=== PATIENT | female | born 1995 | race Caucasian/White ===

== ENCOUNTER → 2018-06-02 | Outpatient (CLI) | payer MEDICAID ==
--- NOTE | 2018-06-02 10:36 | Diagnostic Imaging Report ---
INDICATION: survey. TECHNIQUE: Multiple real-time grayscale images were obtained over the gravid uterus. COMPARISON: None. FINDINGS: There is a single live fetus in a variable presentation. heart rate is recorded at 147 beats per minute. The placenta is posterior. The amniotic fluid volume is normal. Cervical length is 4.5 cm. survey demonstrates kidneys, bladder and stomach to be unremarkable. The brain is unremarkable. There is a four-chamber heart. There is a three-vessel cord with normal insertion. The spine is unremarkable. Biometrical measurements are as follows: Biparietal 3.81 cm, age 17 weeks 5 days. Head circumference 14.02 cm, age 17 weeks 3 days. Abdominal circumference 12.62 cm, age 18 weeks 2 days. Femur length 2.83 cm, age 18 weeks 5 days. Sonographic estimate age: 18 weeks 1 days. Sonographic estimated date of delivery: 10/26/2018. Estimated Weight: 234 gm (+/- 34 gm). LMP percentile: 9%. heart rate: 147 beats per minute. number: 1 of 1. IMPRESSION: Single live IUP 18 weeks 1 day gestational age. Estimated date of confinement sonographically is 10/26/2018. Dictated by: Dictated on workstation # [id number]
== END ==
LOC: RAD 09:23
PROVIDERS: ATTEND Obstetrics & Gynecology
DX: Z36.89 Encounter for other specified antenatal screening (principal); Z3A.18 18 weeks gestation of pregnancy
CPT/HCPCS: 76805

== ENCOUNTER 2018-09-09 19:53 | Outpatient (CLI) | payer MEDICAID ==
[~2018-09-09] VITALS: Ht 162.6 cm; Wt 103.4 kg
--- NOTE | 2018-09-09 20:00 | NUR ---
ADELAIDA DICKINSON presented to unit via from ED, accompanied by friend, with c/o FALL,BACK PAIN. ADELAIDA DICKINSON weighed, gowned, voided, and to bed. EFHM and TOCO applied, VS taken. ADELAIDA DICKINSON oriented to bed controls, call light, TV, heat, and A/C controls.
--- NOTE | 2018-09-09 20:05 | NUR ---
Pt states that tonight she was walking out of a restaurant and fell on some ice. denies hitting abdomen. now c/o right groin pain, lower back pain, umbilicus pain. states with her last void prior to arrival pt did notice some spotting.
[2018-09-09 20:15] VITALS: BP 113/61
[2018-09-09] MEDS ORDERED: PNV1TABL81 PO (20:40)
--- NOTE | 2018-09-09 20:40 | NUR ---
called with pt's arrival and assessment. orders received.
[2018-09-09] MEDS ORDERED: ACETAMINOPHEN 500 MG TAB (TYLENOL) PO ONE (20:45)
--- NOTE | 2018-09-09 21:15 | NUR ---
u/a collected. pt states no spotting noted
[2018-09-09 21:24] LABS: BILIRUBIN,URINE NEGATIVE (NEGATIVE); CLARITY,URINE CLEAR; COLOR,URINE YELLOW; GLUCOSE, URINE (UA) NEGATIVE (NEGATIVE); KETONES,URINE NEGATIVE (NEGATIVE); LEUKOCYTE ESTERASE ,URINE 1+ (NEGATIVE); NITRITE,URINE NEGATIVE (NEGATIVE); PH,URINE 6.5 (5-9); PROTEIN,URINE NEGATIVE (NEGATIVE); UROBILINOGEN,URINE NORMAL (NORMAL)
[2018-09-09 21:35] LABS: BACTERIA,URINE FEW /HPF; RBC,URINE 0-2 /HPF
--- NOTE | 2018-09-09 22:30 | NUR ---
on unit. update given. discharge instructions verbalized. Addendum: 09/09/18 at 2242 by MAYDA HERBERT RN on unit. update given. discharge order received.
--- NOTE | 2018-09-09 22:40 | NUR ---
Discharge instructions verbalized with pt. pt verbalized understanding. Pt dc'd home. will follow up on Wednesday
[2018-09-10] MEDS ORDERED: FLU QUADRIvalent (5+ YOA) 2018-2019 (AFLURIA) 0.5 ML IM ONE (07:30)
--- NOTE | 2018-09-12 17:07 | Physician Query-Final Dx ---
ROSSI MITCHELL 09/12/18 1707: Clinic Account Progress/Dx Physician Query: Please give diagnosis Date of Service Sep 09, 2018 at 19:53 FRANCO BERRIOS DO 09/30/18 1249: Clinic Account Progress/Dx DIAGNOSIS: Diagnosis 33 weeks gestation fall in ROSSI MITCHELL Sep 12, 2018 17:07 FRANCO BERRIOS DO Sep 30, 2018 12:49
== END 2018-09-09 22:40 | disposition home or self-care (01) ==
LOC: WSo 19:53 → LDRP 19:53 → WSo 22:40
PROVIDERS: ATTEND Obstetrics & Gynecology
DX: Z04.3 Encounter for examination and observation following other accident (principal); Z3A.33 33 weeks gestation of pregnancy
CPT/HCPCS: 81000; 99213

== ENCOUNTER → 2018-09-16 | Outpatient (CLI) | payer MEDICAID ==
[~2018-09-16] MED LIST: PNV1TABL81 PO
--- NOTE | 2018-09-16 13:07 | Diagnostic Imaging Report ---
INDICATION: Macrosomia. TECHNIQUE: Multiple real-time grayscale images were obtained over the gravid uterus. COMPARISON: 06/02/2018. FINDINGS: There is a single live fetus in a cephalic presentation. heart rate was recorded at 130 beats per minute. Placenta is posterior. Amniotic fluid volume is normal. Cervical length is 4.5 cm. Biometrical measurements are as follows: Biparietal 8.02 cm, age 32 weeks 2 days. Head circumference 29.44 cm, age 32 weeks 4 days. Abdominal circumference 26.69 cm, age 30 weeks 6 days. Femur length 6.26 cm, age 32 weeks 3 days. Sonographic estimate age: 32 weeks 1 days. Sonographic estimated date of delivery: 11/10/18. Estimated Weight: 1797 gm (+/- 262 gm). LMP percentile: 2%. heart rate: 130 beats per minute. number: 1 of 1. IMPRESSION: Single live IUP measuring approximately 32 weeks gestational age, showing normal interval growth when compared with the prior exam. No complicating features are seen. Dictated by: Dictated on workstation # [id number]
== END ==
LOC: RAD 09:44
PROVIDERS: ATTEND Obstetrics & Gynecology
DX: O36.63X0 Maternal care for excessive fetal growth, third trimester, not applicable or unspecified (principal); Z3A.32 32 weeks gestation of pregnancy
CPT/HCPCS: 76816

== ENCOUNTER 2018-10-23 20:05 | Inpatient (IN) | payer MEDICAID ==
[~2018-10-23] VITALS: Ht 162.6 cm; Wt 108.4 kg
--- OUTSIDE RECORDS SUMMARY | 2018-10-23 20:09 | XMS REPORT | Continuity of Care Document ---
Demographics Preferred Language Unknown Marital Status Unknown Latter-Day Affiliation Unknown Race Unknown Ethnic Group Unknown Author Author [facility] Address Unknown Phone Unavailable Allergies There is no data. Medications There is no data. Problems There is no data. Procedures There is no data. Results There is no data. Encounters ACCT No. Visit Date/Time Discharge Status Pt. Type Provider Facility Loc./Unit Complaint [id number] 01/05/2013 11:30:45 Document Registration
--- OUTSIDE RECORDS SUMMARY | 2018-10-23 20:09 | XMS REPORT ---
Author Author ADAN CALDERON [facility] Address [address] [place] [address] Care Team Providers Care Stem Crusher Name Role Phone ADAN CALDERON Unavailable PROBLEMS Type Condition ICD9-CM Code [id number] Code Onset Dates Condition Status SNOMED Code Problem Obesity (BMI 30-39.9) 278.00 Active 360998843 Problem Chronic headaches 784.0 Active 655460595 ALLERGIES No Known Allergies ENCOUNTERS Encounter Location Date Diagnosis [place] [id number] [place] [phone] Mar, [place] [address] [address] Mar, Routine gynecological examination Z01.419 and Routine screening for STI (sexually transmitted infection) Z11.3 [place] [id number] [place] [address] Dec, [place] [id number] [address] Dec, [place] [id number] [place] [address] Dec, Routine gynecological examination Z01.419 and Encounter for counseling regarding contraception Z30.9 [place] [id number] [place] [phone] Jan, Chronic headaches 784.0 and Obesity (BMI 30-39.9) 278.00 [place] [id number] [place] [address] Jan, Oral contraceptive pill surveillance V25.41 [place] [id number] [place] [phone] Dec, Tension headache, chronic 339.12 [facility] [address] [facility] [id number] [address] Oct, Nexplanon removal V25.43 ; General counseling on prescription of oral contraceptives V25.01 and Screen for STD (sexually transmitted disease) V74.5 [facility] [address] [facility] [id number] [address] Apr, [facility] [address] [facility] [id number] [address] Dec, IMMUNIZATIONS No Known Immunizations SOCIAL HISTORY Never Assessed REASON FOR VISIT Annual physical (female)/STD check---TR Valle PLAN OF CARE Activity Details Follow Up 1 Year, sooner prn Reason: VITAL SIGNS Height 64 in 2017-03-09 Weight 225.9 lbs 2017-03-09 Temperature 97.8 degrees Fahrenheit 2017-03-09 Heart Rate 88 bpm 2017-03-09 Respiratory Rate 18 2017-03-09 BMI 38.77 kg/m2 2017-03-09 Blood pressure systolic 124 mmHg 2017-03-09 Blood pressure diastolic 80 mmHg 2017-03-09 MEDICATIONS Medication Instructions Dosage Frequency Start Date End Date Duration Status Amoxicillin 875 MG Orally every 12 hrs 1 tablet 12h Mar, Mar, 07 days Active RESULTS Name Result Date Reference Range TRICHOMONAS (IN HOUSE) 2017-03-09 TRICHOMONAS Negative Control + Lot # [id number] Exp date 19/04/30 BACTERIAL VAGINOSIS (IN HOUSE) 2017-03-09 RESULTS Negative Control + Lot # [id number] Exp date HSV 1/2 ANTIBODY IgG 2017-03-09 HSV 1 IgG, Type Spec 13.50 0.00-0.90 HSV 2 IgG, Type Spec <0.91 0.00-0.90 HSV 1/2 ANTIBODY IgM 2017-03-09 HSV 1 IgM Antibodies <1:10 <1:10 HSV 2 IgM Antibodies <1:10 <1:10 CULTURE, GENITAL 2017-03-09 Genital Culture, Routine Final report Result 1 Result 2 PDF Report 2017-03-09 PDF Report1 LCLS PAP TEST, HPV IF ASCUS 2017-03-09 DIAGNOSIS: Specimen adequacy: Clinician provided ICD10: Performed by: Electronically signed by: . . Note: . PROCEDURES Procedure Date Ordered Result Body Site No Charge Mar 09, 2017 HERPES SIMPLEX TYPE 2 Mar 09, 2017 CULTURE, BACTERIA, OTHER Mar 09, 2017 VENIPUNCT, ROUTINE* Mar 09, 2017 SPECIMEN HANDLING Mar 09, 2017 HERPES SIMPLEX TEST Mar 09, 2017 Bacterial Vaginosis In House Mar 09, 2017 TRICHOMONAS ASSAY W/OPTIC Mar 09, 2017 INSTRUCTIONS MEDICATIONS ADMINISTERED No Known Medications MEDICAL (GENERAL) HISTORY Type Description Date Medical History Headaches
[2018-10-23 20:25] VITALS: BP 118/80
[2018-10-23] MEDS ORDERED: D5 LR IV SOLUTION 1,000 ML IV ONE (20:30)
[2018-10-23] MEDS ORDERED: VANCOMYCIN INJECTION 2,000 MG in NS IV 500 ML 500 ML IV ONE (21:15)
[2018-10-23] MEDS ORDERED: LACTATED RINGERS 1,000 ML IV SCH (21:17)
[2018-10-23] MEDS ORDERED: VANCOMYCIN 1000 MG/VIAL ONE (21:23)
[2018-10-23] MEDS ORDERED: WATER (STERILE) FOR INJECTION 0 ML ONE (21:28)
[2018-10-23] MEDS ORDERED: TERBUTALINE INJ 1 MG/ML (BRETHINE) AMP SC PRN (21:30)
[2018-10-23] MEDS ORDERED: MISOPROSTOL 100 MCG (CYTOTEC) TAB PO ONE (21:30)
[2018-10-23] MEDS ORDERED: NS IV 500 ML 500 ML ONE (21:38)
[2018-10-23] MEDS ORDERED: ZOLPIDEM 5 MG (AMBIEN) TAB PO ONE (21:45)
[2018-10-23 21:50] VITALS: BP 112/66
[2018-10-23 21:57] LABS: BASOPHILS % (AUTO) 0 % (0-10); EOSINOPHILS # (AUTO) 0.1 10^3/uL (0.0-0.3); EOSINOPHILS % (AUTO) 1 % (0-10); HEMATOCRIT 32 % (35-52); HEMOGLOBIN 10.6 G/DL (11.5-16.0); LYMPHOCYTES # (AUTO) 2.8 X 10^3 (1.0-4.0); LYMPHOCYTES % (AUTO) 18 % (12-44); MEAN CORPUSCULAR HEMOGLOBIN 29 PG (25-34); MEAN CORPUSCULAR HGB CONC 33 G/DL (32-36); MEAN CORPUSCULAR VOLUME 87 FL (80-99); MONOCYTES # (AUTO) 1.3 X 10^3 (0.0-1.0); MONOCYTES % (AUTO) 9 % (0-12); NEUTROPHILS % (AUTO) 72 % (42-75); PLATELET COUNT 296 10^3/uL (130-400); RED CELL DISTRIBUTION WIDTH 13.5 % (10.0-14.5); WHITE BLOOD COUNT 15.1 10^3/uL (4.3-11.0)
[2018-10-23 22:02] LABS: BILIRUBIN,URINE NEGATIVE (NEGATIVE); CLARITY,URINE CLEAR; COLOR,URINE YELLOW; GLUCOSE, URINE (UA) NEGATIVE (NEGATIVE); KETONES,URINE 1+ (NEGATIVE); LEUKOCYTE ESTERASE ,URINE 1+ (NEGATIVE); NITRITE,URINE NEGATIVE (NEGATIVE); PH,URINE 5 (5-9); PROTEIN,URINE NEGATIVE (NEGATIVE); UROBILINOGEN,URINE NORMAL (NORMAL)
[2018-10-23 22:17] LABS: BACTERIA,URINE TRACE /HPF; WBC,URINE RARE /HPF
[2018-10-23 22:30] VITALS: BP 100/59
[2018-10-23] MEDS ORDERED: CLINDAMYCIN 1% (22:57)
[2018-10-23 23:00] VITALS: BP 112/57
[2018-10-23 23:30] VITALS: BP 105/58
[2018-10-23] MEDS ORDERED: diphenhydrAMINE 50 MG/ML INJ (BENADRYL) ONE (23:53)
[2018-10-24] VITALS (61 sets, daily range): BP systolic 72–144; BP diastolic 42–97
[2018-10-24] MEDS ORDERED: diphenhydrAMINE 50 MG/ML INJ (BENADRYL) IM ONE
[2018-10-24] MEDS ORDERED: FAMOTIDINE 20 MG (PEPCID) TABLET PO ONE
[2018-10-24] MEDS ORDERED: diphenhydrAMINE 50 MG/ML INJ (BENADRYL) IVP ONE (00:15)
[2018-10-24] MEDS: MISOPROSTOL 100 MCG (CYTOTEC) TAB PO SCH ×4 (02:23→15:47)
[2018-10-24] MEDS ORDERED: CLINDAMYCIN 600 MG/50 ML IVPB 50 ML IV SCH (06:00)
[2018-10-24] MEDS ORDERED: CLINDAMYCIN 900 MG/50 ML IVPB 50 ML IV ONE (06:22)
[2018-10-24] MEDS: D5 LR IV SOLUTION 1,000 ML IV SCH ×3 (06:33→22:11)
--- NOTE | 2018-10-24 07:00 | NUR ---
REPORT FROM JOLENE FOSTER.
--- NOTE | 2018-10-24 07:43 | History & Physical-OB ---
OB - Chief Complaint & HPI Date/Time Date of Admission: Date of Admission: Oct 23, 2018 at 20:05 Date seen by a Provider: Oct 24, 2018 Time Seen by a Provider: 07:38 Chief Complaint/History OB-Reason for Admission/Chief: Induction of Labor Hx : 1 Hx Para: 0 Hx Last Menstrual Period: 01/19/18 Expected Date of Delivery: Oct 26, 2018 Gestational Age in Weeks: 39 Gestational Age in Days: 4 Indication for induction: other Admission Nurse Assessment Rev: Yes History of Labs Laboratory Tests Test 10/23/18 21:00 10/23/18 21:48 Range/Units Urine Color YELLOW Urine Clarity CLEAR Urine pH 5 5-9 Urine Specific [place] 1.025 H 1.016-1.022 Urine Protein NEGATIVE NEGATIVE Urine Glucose (UA) NEGATIVE NEGATIVE Urine Ketones 1+ H NEGATIVE Urine Nitrite NEGATIVE NEGATIVE Urine Bilirubin NEGATIVE NEGATIVE Urine Urobilinogen NORMAL NORMAL MG/DL Urine Leukocyte Esterase 1+ H NEGATIVE Urine RBC (Auto) NEGATIVE NEGATIVE Urine RBC NONE /HPF Urine WBC RARE /HPF Urine Squamous Epithelial Cells 5-10 /HPF Urine Crystals NONE /LPF Urine Bacteria TRACE /HPF Urine Casts NONE /LPF Urine Mucus NEGATIVE /LPF Urine Culture Indicated NO White Blood Count 15.1 H 4.3-11.0 10^3/uL Red Blood Count 3.66 L 4.35-5.85 10^6/uL Hemoglobin 10.6 L 11.5-16.0 G/DL Hematocrit 32 L 35-52 % Mean Corpuscular Volume 87 80-99 FL Mean Corpuscular Hemoglobin 29 25-34 PG Mean Corpuscular Hemoglobin Concent 33 32-36 G/DL Red Cell Distribution Width 13.5 10.0-14.5 % Platelet Count 296 130-400 10^3/uL Mean Platelet Volume 10.0 7.4-10.4 FL Neutrophils (%) (Auto) 72 42-75 % Lymphocytes (%) (Auto) 18 12-44 % Monocytes (%) (Auto) 9 0-12 % Eosinophils (%) (Auto) 1 0-10 % Basophils (%) (Auto) 0 0-10 % Neutrophils # (Auto) 11.0 H 1.8-7.8 X 10^3 Lymphocytes # (Auto) 2.8 1.0-4.0 X 10^3 Monocytes # (Auto) 1.3 H 0.0-1.0 X 10^3 Eosinophils # (Auto) 0.1 0.0-0.3 10^3/uL Basophils # (Auto) 0.0 0.0-0.1 10^3/uL Allergies and Home Medications Allergies Coded Allergies: vancomycin (Verified Allergy, Mild, HIVES, 10/24/18) Home Medications Acetaminophen 500 Mg Tablet, 1,000 MG PO Q8H Prescribed by: FRANCO BERRIOS on 10/26/182036 Ibuprofen 600 Mg Tablet, 600 MG PO Q6H Prescribed by: FRANCO BERRIOS on 10/26/182036 Patient Home Medication List Home Medication List Reviewed: Yes OB - History Hx of Present Care: Yes Ultrasounds: Abnormal US findings Obstetrical Complications: Growth Restriction Medical Complications: None Obstetrical History Hx : 1 Hx Para: 0 Hx # Term Pregnancies: 0 Hx # Pregnancies: 0 Number of Living Children: 0 Hx Termination: No Hx Multiple Gestation: No Hx Ectopic : No Hx Stillbirth: No Hx Complication: No Hx Induced Hypertens: No Hx Maternal Gestational Diabet: No Hx Hemorrhage: No Patient Past Medical History No past medical history Social History/Family History Alcohol Use: Denies Use Recreational Drug Use: No Significant Family Hx Mother: Diabetes mellitus Maternal grandmother: Diabetes mellitus, Hyperlipidemia, Emphysema, Lung cancer Paternal grandmother: Alzheimer disease, diabetes mellitus, hyperlipidemia, hypertension Maternal grandfather: diabetes mellitus, heart disease Paternal grandfather: diabetes mellitus, heart disease Immunizations Rubella: immune RPR/VDRL: Negative GBS Status: Positive HBsAG: Negative OB - Admission Exam Physical Exam Vitals: Vital Signs 10/24/18 10/24/18 06:00 07:00 Temp 97.1 Pulse 75 Resp 18 B/P (MAP) 110/58 (75) O2 Delivery Room Air HEENT: Eyes non-injected Heart: Rhythm Normal Lungs: Clear, Equal Abdomen: Non tender Extremities: Normal Labs Laboratory Tests Test 10/23/18 21:00 10/23/18 21:48 Range/Units Urine Color YELLOW Urine Clarity CLEAR Urine pH 5 5-9 Urine Specific [place] 1.025 H 1.016-1.022 Urine Protein NEGATIVE NEGATIVE Urine Glucose (UA) NEGATIVE NEGATIVE Urine Ketones 1+ H NEGATIVE Urine Nitrite NEGATIVE NEGATIVE Urine Bilirubin NEGATIVE NEGATIVE Urine Urobilinogen NORMAL NORMAL MG/DL Urine Leukocyte Esterase 1+ H NEGATIVE Urine RBC (Auto) NEGATIVE NEGATIVE Urine RBC NONE /HPF Urine WBC RARE /HPF Urine Squamous Epithelial Cells 5-10 /HPF Urine Crystals NONE /LPF Urine Bacteria TRACE /HPF Urine Casts NONE /LPF Urine Mucus NEGATIVE /LPF Urine Culture Indicated NO White Blood Count 15.1 H 4.3-11.0 10^3/uL Red Blood Count 3.66 L 4.35-5.85 10^6/uL Hemoglobin 10.6 L 11.5-16.0 G/DL Hematocrit 32 L 35-52 % Mean Corpuscular Volume 87 80-99 FL Mean Corpuscular Hemoglobin 29 25-34 PG Mean Corpuscular Hemoglobin Concent 33 32-36 G/DL Red Cell Distribution Width 13.5 10.0-14.5 % Platelet Count 296 130-400 10^3/uL Mean Platelet Volume 10.0 7.4-10.4 FL Neutrophils (%) (Auto) 72 42-75 % Lymphocytes (%) (Auto) 18 12-44 % Monocytes (%) (Auto) 9 0-12 % Eosinophils (%) (Auto) 1 0-10 % Basophils (%) (Auto) 0 0-10 % Neutrophils # (Auto) 11.0 H 1.8-7.8 X 10^3 Lymphocytes # (Auto) 2.8 1.0-4.0 X 10^3 Monocytes # (Auto) 1.3 H 0.0-1.0 X 10^3 Eosinophils # (Auto) 0.1 0.0-0.3 10^3/uL Basophils # (Auto) 0.0 0.0-0.1 10^3/uL OB - Assessment/Plan/Diagnosis Assessment Assessment: induction of labor Admission Dx at 39 weeks and 4 days Induction due to post dates Gestational HTN Admission Status: Inpatient Order (span 2 midnights) Reason for Inpatient Admission: at 39 weeks and 4 days Induction due to post dates Gestational HTN Plan Plan: Induction Discharge Diagnosis Diagnosis: at 39 weeks and 4 days Induction due to post dates Gestational HTN JALEESA TELLEZ STUDENT Oct 24, 2018 07:43
[2018-10-24] MEDS ORDERED: FLU QUADRIvalent (5+ YOA) 2018-2019 (AFLURIA) 0.5 ML IM ONE (07:45)
[2018-10-24] MEDS ORDERED: VANCOMYCIN INJECTION 1,000 MG in NS (IVPB) 250 ML IV SCH (09:00)
[2018-10-24] MEDS ORDERED: BUTORPHANOL INJ 2 MG/ML (STADOL) VIAL IV PRN (11:00)
--- NOTE | 2018-10-24 11:09 | Physician Progress Note ---
Progress Note Assessment/Plan Date Seen by Provider: Oct 24, 2018 Time Seen by Provider: 11:00 Events since last exam 3 doses oral misoprostol. 1 dose IV vancomycin due to GBS + and suspected staph infection (left lower abdomen). Developed hypersensitivity reaction with itching and hives about 1 hour after infusion. Was given Benadryl and H2 marcelo and rash has gone away. Now receiving clindamycin. Next dose due at 12 :30. She is having irregular contractions SVE 2/50/-2 anterior. AROM with clear fluid. FSE placed Will give addl dose of misoprostol and then augment as needed with oxytocin. Iv pain medication as needed. Gelacio Krueger/Truong. Assessment/Plan 1. Induction of labor at Term 2. Recent abdominal skin abscess, improved with topical and oral antibiotics; no current drainage; covered 3. Allergic rxn to Vancomycin Plan as above Vitals Last set of Vitals Signs Vital Signs Date Time Temp Pulse Resp B/P (MAP) Pulse Ox O2 Delivery O2 Flow Rate FiO2 10/24/18 07:00 75 18 110/58 (75) Room Air 10/24/18 06:00 97.1 I&O I&O Intake and Output 10/24/18 00:00 Daily Weight Change No Labs Laboratory Tests 10/23/18 21:00: Urine Color YELLOW, Urine Clarity CLEAR, Urine pH 5, Urine Specific [place] 1.025H, Urine Protein NEGATIVE, Urine Glucose (UA) NEGATIVE, Urine Ketones 1+H, Urine Nitrite NEGATIVE, Urine Bilirubin NEGATIVE, Urine Urobilinogen NORMAL, Urine Leukocyte Esterase 1+H, Urine RBC (Auto) NEGATIVE, Urine RBC NONE, Urine WBC RARE, Urine Squamous Epithelial Cells 5-10, Urine Crystals NONE, Urine Bacteria TRACE, Urine Casts NONE, Urine Mucus NEGATIVE, Urine Culture Indicated NO 10/23/18 21:48: White Blood Count 15.1H, Red Blood Count 3.66L, Hemoglobin 10.6L, Hematocrit 32L , Mean Corpuscular Volume 87, Mean Corpuscular Hemoglobin 29, Mean Corpuscular Hemoglobin Concent 33, Red Cell Distribution Width 13.5, Platelet Count 296, Mean Platelet Volume 10.0, Neutrophils (%) (Auto) 72, Lymphocytes (%) (Auto) 18 , Monocytes (%) (Auto) 9, Eosinophils (%) (Auto) 1, Basophils (%) (Auto) 0, Neutrophils # (Auto) 11.0H, Lymphocytes # (Auto) 2.8, Monocytes # (Auto) 1.3H, Eosinophils # (Auto) 0.1, Basophils # (Auto) 0.0 Clinical Quality Measures DVT/VTE Risk/Contraindication: Risk Factor Score Per Nursin RFS Level Per Nursing on Admit: 1=Low/No VTE PPX FRANCO BERRIOS DO Oct 24, 2018 11:09
[2018-10-24] MEDS ORDERED: PROMETHAZINE INJ 25 MG/ML (PHENERGAN) AMP IVP PRN (11:15)
[2018-10-24] MEDS ORDERED: CLINDAMYCIN 900 MG/50 ML IVPB 50 ML IV SCH (12:00)
[2018-10-24] MEDS: CLINDAMYCIN 900 MG/50 ML IVPB 50 ML IV SCH ×2 (12:47→19:02)
[2018-10-24] MEDS ORDERED: SUFENTA 0.6MCG/ML BUPIVA 0.125 100 ML ONE (18:51)
[2018-10-24] MEDS ORDERED: OXYTOCIN/NORMAL SALINE 500 ML IV ONE (19:44)
[2018-10-24] MEDS ORDERED: LIDOCAINE PF 2% 5 ML (XYLOCAINE) VIAL ONE ×2 (20:27→21:49)
[2018-10-24] MEDS ORDERED: BUPIVACAINE 0.25% 30 ML (SENSORCAINE) VIAL ONE (20:27)
[2018-10-24] MEDS ORDERED: fentaNYL INJECTION 100 MCG/2 ML AMP ONE (20:28)
[2018-10-24] MEDS ORDERED: OXYTOCIN/NORMAL SALINE 500 ML IV SCH (20:35)
[2018-10-24] MEDS ORDERED: LACTATED RINGERS 1,000 ML IV SCH (22:10)
[2018-10-24] MEDS ORDERED: ONDANSETRON 4 MG/2 ML (SDV) Z0FRAN IV PRN (22:15)
[2018-10-24] MEDS ORDERED: NALOXONE 0.4 MG/ML 1 ML (NARCAN) VIAL IV PRN (22:15)
[2018-10-24] MEDS ORDERED: diphenhydrAMINE 50 MG/ML INJ (BENADRYL) IV PRN (22:15)
[2018-10-24] MEDS ORDERED: EPIDURAL (SUFENTA 0.6MCG/ML BUPIVA 0.125%) 100 ML BAG EPI PRN (22:15)
[2018-10-25] VITALS (25 sets, daily range): BP systolic 95–139; BP diastolic 52–91
[2018-10-25] MEDS: CLINDAMYCIN 900 MG/50 ML IVPB 50 ML IV SCH (00:25)
[2018-10-25] MEDS ORDERED: MINERAL OIL CONCENTRATE 99.9% 15 ML UDC ONE (01:54)
[2018-10-25] MEDS ORDERED: OXYTOCIN/NORMAL SALINE 500 ML IV SCH (03:02)
[2018-10-25] MEDS ORDERED: MEASLES,MUMPS,RUBELLA 1 EA INJ SQ ONE (03:15)
[2018-10-25] MEDS ORDERED: TETANUS,DIPTH,PERTUSS P/F (BOOSTRIX) 0.5 ML VIAL IM ONE (03:15)
[2018-10-25] MEDS ORDERED: DIBUCAINE (NUPERCAINAL) 1% OINT 30 GM TOP PRN (03:15)
[2018-10-25] MEDS ORDERED: BENZOCAINE/MENTHOL (DERMOPLAST) 56 ML CAN TP PRN (03:15)
[2018-10-25] MEDS ORDERED: WITCH HAZEL(TUCKS) 40 EA JAR TOP PRN (03:15)
--- NOTE | 2018-10-25 04:35 | OB Labor & Delivery Record ---
Vag Delivery Note Vag Delivery Note Date of Delivery: 10/25/18 Preoperative Diagnosis: Ivette Montague is a (23 /Para 1 / 0, Gestational Age 39 4/7 weeks for induction of labor due to post dates, staph infection of skin, GBS +. Postoperative Diagnosis: Same Surgeon: FRANCO BERRIOS Business Relations Manager: Susy Webster MS IV Anesthesia: epidural Delivery Type: vaginal, vacuum assist due to decelerations Findings: Viable , apgars 7/9, weight pending Lacerations: 1st degree. Intact placenta with 3 vessel cord. nuchal cord delivered through, no body cord or shoulder dystocia Estimated Blood Loss: 150 ml Complications: None Condition: Stable Description of Procedure: The patient is a 23 year old female who presented at 39 4/7 weeks for induction of labor. . She was admitted and informed consent was obtained. She received Cytotec x 2 doses. She has history of a furuncle on the abdomen that developed last week. Blood pressures have been elevated so we have been monitoring, but now severe enough to induce early so opted to treat the furuncle with oral antibiotics. She has not completed the course. There was no drainage so no culture was done, but this is suspected to be staph. Therefore she was started on vancomycin. However, after the infusion she was noted to complain of some redness to the face and chest and complained of itching. She did not have a rash and did not have any evidence of respiratory distress. This may have been "red man" reaction. The antibiotic was changed to clindamycin. She had augmentation with pitocin. She progressed to complete dilatation and began to push. She was then set up for delivery. Due to deep decelerations that did not recover and poor maternal effort, the Kiwi vac was placed on the head at + 2 station. With two pushes and one pop off the infant's head was delivered atraumatically in the OA position. The shoulders and remainder of the infant's body were then delivered without difficulty. Upon delivery, the head was held below the level of the perineum and the mouth and nares were bulb suctioned. The cord was doubly clamped and cut and the infant was handed off to the pediatric staff. An intact placenta with 3-vessel cord delivered via Matthew and there was found to be minimal bleeding.~ Vigorous fundal massage was performed and the fundus was found to be firm. IV oxytocin was given. Examination of the vagina and perineum revealed a 1st degree laceration repaired in the usual fashion with 3-0 vicryl suture. There was also a labial laceration that was not repaired. Following the repair, sponge, instrument and needle counts were correct. Mom and baby were both in stable condition in the labor suite. Vitals - Labs Vital Signs - I&O Vital Signs Date Time Temp Pulse Resp B/P (MAP) Pulse Ox O2 Delivery O2 Flow Rate FiO2 10/24/18 21:51 89 18 103/64 (77) 100 Room Air 10/24/18 21:46 89 18 131/78 (95) 100 Room Air 10/24/18 21:42 102 18 112/68 (83) 100 Room Air 10/24/18 21:32 85 18 104/64 (77) 98 Room Air 10/24/18 21:26 95 18 115/77 (90) 98 Room Air 10/24/18 21:21 83 18 120/85 (97) 96 Room Air 10/24/18 21:18 85 18 131/80 (97) 95 Room Air 10/24/18 21:16 96 18 142/95 (111) 98 Room Air 10/24/18 21:11 97 18 137/95 (109) 98 Room Air 10/24/18 21:06 99 18 126/90 (102) 97 Room Air 10/24/18 21:01 99 18 141/96 (111) 99 Room Air 10/24/18 20:52 92 18 131/97 (108) 99 Room Air 10/24/18 20:46 87 18 123/96 (105) 100 Room Air 10/24/18 20:41 89 18 134/94 (107) 100 Room Air 10/24/18 20:35 97.9 90 18 129/86 (100) 100 Room Air 10/24/18 20:20 75 18 131/76 (94) Room Air 10/24/18 19:50 87 18 132/86 (101) Room Air 10/24/18 19:20 67 18 116/73 (87) Room Air 10/24/18 07:00 75 18 110/58 (75) Room Air 10/24/18 06:30 79 18 103/73 (83) Room Air 10/24/18 06:00 97.1 86 18 108/62 (77) Room Air 10/24/18 05:30 86 18 102/56 (71) Room Air 10/24/18 05:00 76 18 97/54 (68) Room Air I & O 10/25/18 07:00 Intake Total 1000 ml Balance 1000 ml FRANCO BERRIOS DO Oct 25, 2018 04:35
[2018-10-25] MEDS ORDERED: CATHETER FLUSH 10 ML SYR IV SCH (06:00)
--- NOTE | 2018-10-25 06:45 | NUR ---
Pt ready for room transfer. pad changed. pt transferred to . Tolerated well. Transferred to room 312 via accompanied by this rn and baby. Pt up to br. Able to void. Marine care done. Pt up in room holding infant. Will monitor.
[2018-10-25] MEDS: IBUPROFEN 600 MG (MOTRIN) TAB PO SCH ×3 (06:49→19:13)
--- NOTE | 2018-10-25 07:38 | NUR ---
0700 Report given to Shaka Snow RN.
--- NOTE | 2018-10-25 08:40 | Anesthesia-Regional Post-Op ---
Regional Patient Condition Mental Status: Alert, Oriented x3 Circulation: Same as Pre-Op Headache: Absent Sensation: Full Recovery Motor Block: Absent Post Op Complications Complications None Follow Up Care/Instructions Patient Instructions None needed. Anesthesia/Patient Condition Patient is doing well, no complaints, stable vital signs, no apparent adverse anesthesia problems. No complications reported per nursing. D/C home per [facility] Criteria: CORINA Reyes CRNA Oct 25, 2018 08:40
[2018-10-25] MEDS: FERROUS SULF 325 MG (IRON) TAB PO SCH (08:51)
[2018-10-25] MEDS: PRENATAL VITAMIN 1 EA TAB PO SCH (08:51)
[2018-10-25] MEDS: ACETAMINOPHEN 500 MG TAB (TYLENOL) PO SCH ×2 (08:59→17:25)
[2018-10-25] MEDS: MUPIROCIN 2% OINT 22 GM (BACTROBAN) TUBE TOP SCH ×2 (09:15→21:00)
--- NOTE | 2018-10-25 13:20 | NUR ---
Report to Flakita Villegas RN
--- NOTE | 2018-10-25 13:50 | NUR ---
Assuming care of this pt. Pt and S.O. in bed hold baby. Questions asked regarding infant's spitting - reassured. (bottle feeding) Perineal pain 5. Bleeding moderate per pt.
[2018-10-26] MEDS: IBUPROFEN 600 MG (MOTRIN) TAB PO SCH ×5 (00:56→22:20)
[2018-10-26 01:00] VITALS: BP 118/73
[2018-10-26] MEDS: ACETAMINOPHEN 500 MG TAB (TYLENOL) PO SCH ×4 (01:26→22:20)
[2018-10-26 04:40] VITALS: BP 131/69
[2018-10-26 06:16] LABS: BASOPHILS % (AUTO) 0 % (0-10); EOSINOPHILS # (AUTO) 0.2 10^3/uL (0.0-0.3); EOSINOPHILS % (AUTO) 2 % (0-10); HEMATOCRIT 29 % (35-52); HEMOGLOBIN 9.4 G/DL (11.5-16.0); LYMPHOCYTES # (AUTO) 2.9 X 10^3 (1.0-4.0); LYMPHOCYTES % (AUTO) 30 % (12-44); MEAN CORPUSCULAR HEMOGLOBIN 29 PG (25-34); MEAN CORPUSCULAR HGB CONC 33 G/DL (32-36); MEAN CORPUSCULAR VOLUME 87 FL (80-99); MEAN PLATELET VOLUME 9.5 FL (7.4-10.4); MONOCYTES # (AUTO) 0.8 X 10^3 (0.0-1.0); MONOCYTES % (AUTO) 8 % (0-12); NEUTROPHILS # (AUTO) 5.9 X 10^3 (1.8-7.8); NEUTROPHILS % (AUTO) 61 % (42-75); PLATELET COUNT 231 10^3/uL (130-400); RED CELL DISTRIBUTION WIDTH 13.4 % (10.0-14.5); WHITE BLOOD COUNT 9.7 10^3/uL (4.3-11.0)
--- NOTE | 2018-10-26 07:26 | Anesthesia-Regional Post-Op ---
Regional Patient Condition Mental Status: Alert, Oriented x3 Circulation: Same as Pre-Op Headache: Absent Sensation: Full Recovery Motor Block: Absent Post Op Complications Complications None Follow Up Care/Instructions Patient Instructions None needed. Anesthesia/Patient Condition Patient is doing well, no complaints, stable vital signs, no apparent adverse anesthesia problems. No complications reported per nursing. D/C home per [facility] Criteria: JERMAN Yancey CRNA Oct 26, 2018 07:26
[2018-10-26] MEDS: FERROUS SULF 325 MG (IRON) TAB PO SCH (09:45)
[2018-10-26] MEDS: PRENATAL VITAMIN 1 EA TAB PO SCH (09:45)
--- NOTE | 2018-10-26 09:45 | NUR ---
initial shift assessment completed, see interventions for further. pt denies c/o's @ time. scheduled medications given, see eMar for further.
[2018-10-26 12:00] VITALS: BP 121/86
[2018-10-26 16:00] VITALS: BP 104/58
--- NOTE | 2018-10-26 16:00 | NUR ---
vs taken. scheduled Motrin given. infant in arms. appropriate bonding noted.
--- NOTE | 2018-10-26 19:29 | NUR ---
report given to next shift.
--- NOTE | 2018-10-26 20:35 | Postpartum Progress Note ---
Note Note Day # 1 Patient seen and examined at 1030 am Subjective: Patient is without complaints. Ambulating, voiding. Tolerating a regular diet without nausea or vomiting. Normal lochia. Pain is well controlled with oral pain medications. Objective: Laboratory Tests Test 10/26/18 06:05 Range/Units White Blood Count 9.7 4.3-11.0 10^3/uL Red Blood Count 3.27 L 4.35-5.85 10^6/uL Hemoglobin 9.4 L 11.5-16.0 G/DL Hematocrit 29 L 35-52 % Mean Corpuscular Volume 87 80-99 FL Mean Corpuscular Hemoglobin 29 25-34 PG Mean Corpuscular Hemoglobin Concent 33 32-36 G/DL Red Cell Distribution Width 13.4 10.0-14.5 % Platelet Count 231 130-400 10^3/uL Mean Platelet Volume 9.5 7.4-10.4 FL Neutrophils (%) (Auto) 61 42-75 % Lymphocytes (%) (Auto) 30 12-44 % Monocytes (%) (Auto) 8 0-12 % Eosinophils (%) (Auto) 2 0-10 % Basophils (%) (Auto) 0 0-10 % Neutrophils # (Auto) 5.9 1.8-7.8 X 10^3 Lymphocytes # (Auto) 2.9 1.0-4.0 X 10^3 Monocytes # (Auto) 0.8 0.0-1.0 X 10^3 Eosinophils # (Auto) 0.2 0.0-0.3 10^3/uL Basophils # (Auto) 0.0 0.0-0.1 10^3/uL 10/26/18 10/26/18 12:00 16:00 Temp 97.4 98.0 Pulse 72 73 Resp 16 18 B/P (MAP) 121/86 (98) 104/58 (73) Pulse Ox 100 98 O2 Delivery Room Air Room Air [Physical Exam: General - Alert and oriented, no apparent distress Abdomen - Soft, appropriately tender to palpation, non-distended, fundus firm at umbilicus Extremities - no edema, negative Binta's bilaterally Assessment: 1 post- day # 1, status post spontaneous vaginal delivery. Recovering well, hemodynamically stable Plan: Routine care. Encourage breast feeding. Encourage ambulation. Ferrous sulfate supplementation. Plan for discharge tomorrow Vitals - Labs Vital Signs - I&O Vital Signs Date Time Temp Pulse Resp B/P (MAP) Pulse Ox O2 Delivery O2 Flow Rate FiO2 10/26/18 16:00 98.0 73 18 104/58 (73) 98 Room Air 10/26/18 12:00 97.4 72 16 121/86 (98) 100 Room Air 10/26/18 04:40 97.9 58 18 131/69 (89) 99 Room Air 10/26/18 01:00 97.9 77 18 118/73 (88) 99 Room Air Labs Laboratory Tests 10/26/18 06:05: White Blood Count 9.7, Red Blood Count 3.27L, Hemoglobin 9.4L, Hematocrit 29L, Mean Corpuscular Volume 87, Mean Corpuscular Hemoglobin 29, Mean Corpuscular Hemoglobin Concent 33, Red Cell Distribution Width 13.4, Platelet Count 231, Mean Platelet Volume 9.5, Neutrophils (%) (Auto) 61, Lymphocytes (%) (Auto) 30, Monocytes (%) (Auto) 8, Eosinophils (%) (Auto) 2, Basophils (%) (Auto) 0, Neutrophils # (Auto) 5.9, Lymphocytes # (Auto) 2.9, Monocytes # (Auto) 0.8, Eosinophils # (Auto) 0.2, Basophils # (Auto) 0.0 FRANCO BERRIOS DO Oct 26, 2018 20:35
[2018-10-26] MEDS ORDERED: IBUP-844 PO (20:37)
[2018-10-26] MEDS ORDERED: ACET-77 PO (20:37)
--- NOTE | 2018-10-26 20:41 | Discharge Inst-Women's Service ---
Discharge Inst-Women's Serv Depart Medication/Instructions New, Converted or Re-Newed RX: RX on Chart Instructions continue antibiotics and bactroban Final Diagnosis abdominal wall abscess 39 + week induction vaginal delivery acute blood loss anemia epidural Consults/Follow Up Additional Follow Up: Yes Activity Activity: Activity as Tolerated Driving Instructions: You May Drive NO SMOKING: NO SMOKING Nothing Inside Vagina: No Douching, No [place], No Tampons Diet Discharge Diet: No Restrictions Symptoms to Report to : Bleeding Excessive, Pain Increased, Fever Over 101 Degrees F, Vaginal Bleeding Increase, Cramps in Feet or Legs, Vaginal Discharge Foul For Any Problems or Questions: Contact Your Physician Skin/Wound Care Bathing Instructions: FRANCO Leiva DO Oct 26, 2018 20:41
[2018-10-26 22:22] VITALS: BP 123/80
[2018-10-27] MEDS: IBUPROFEN 600 MG (MOTRIN) TAB PO SCH ×2 (04:27→09:27)
[2018-10-27 04:28] VITALS: BP 124/82
[2018-10-27] MEDS: ACETAMINOPHEN 500 MG TAB (TYLENOL) PO SCH (06:34)
--- NOTE | 2018-10-27 08:59 | Postpartum Progress Note ---
Note Note Day # 2 Subjective: Patient is without complaints. Ambulating, voiding. Tolerating a regular diet without nausea or vomiting. Normal lochia. Pain is well controlled with oral pain medications. Lesion on abdomen is almost gone. Objective: 10/26/18 10/27/18 22:22 04:28 Temp 97.3 98.1 Pulse 79 79 Resp 16 18 B/P (MAP) 123/80 (94) 124/82 (96) Pulse Ox 98 100 O2 Delivery Room Air Room Air Physical Exam: General - Alert and oriented, no apparent distress Abdomen - Soft, appropriately tender to palpation, non-distended, fundus firm at umbilicus Extremities - no edema, negative Binta's bilaterally Assessment: 1. post- day # 2, status post vaginal delivery. Recovering well, hemodynamically stable 2. Faruncle on abdomen - continue antibiotics Plan: Routine care. Encourage breast feeding. Encourage ambulation. Ferrous sulfate supplementation. Plan for discharge Vitals - Labs Vital Signs - I&O Vital Signs Date Time Temp Pulse Resp B/P (MAP) Pulse Ox O2 Delivery O2 Flow Rate FiO2 10/27/18 04:28 98.1 79 18 124/82 (96) 100 Room Air 10/26/18 22:22 97.3 79 16 123/80 (94) 98 Room Air 10/26/18 16:00 98.0 73 18 104/58 (73) 98 Room Air 10/26/18 12:00 97.4 72 16 121/86 (98) 100 Room Air FRANCO BERRIOS DO Oct 27, 2018 08:59
--- NOTE | 2018-10-27 09:00 | NUR ---
Raymundo Polanco here. dismissal orders received.
[2018-10-27 09:27] VITALS: BP 127/81
[2018-10-27] MEDS: FERROUS SULF 325 MG (IRON) TAB PO SCH (09:27)
[2018-10-27] MEDS: PRENATAL VITAMIN 1 EA TAB PO SCH (09:27)
--- NOTE | 2018-10-27 09:27 | NUR ---
initial shift assessment completed, see interventions for further. POC reviewed, states understanding.
[2018-10-27] MEDS ORDERED: TETANUS,DIPTH,PERTUSS P/F (BOOSTRIX) 0.5 ML VIAL IM ONE (11:16)
--- NOTE | 2018-10-27 11:20 | NUR ---
Tdap given. see eMar for further.
--- NOTE | 2018-10-27 11:29 | NUR ---
dismissal instructions given, verbalizes understanding. reviewed dismissal medications and follow up appointments. signature page signed, placed on chart.
--- NOTE | 2018-10-27 11:32 | NUR ---
Motrin and Tylenol Rx's called into [facility] in [place] per pt's request.
--- NOTE | 2018-10-27 11:45 | NUR ---
pt ambulated to private vehicle with KRISTIN Decker, and mother @ side. infant secured in rear facing car seat. pt stable with no sx's of distress noted.
== END 2018-10-27 11:45 | disposition home or self-care (01) | DRG 806 ==
LOC: LDRP 20:05
PROVIDERS: ADMIT Obstetrics & Gynecology; ATTEND Obstetrics & Gynecology
PROC: 10D07Z6 Extraction of Products of Conception, Vacuum, Via Natural or Artificial Opening (ICD-10-PCS; principal; 2018-10-25)
PROC: 0HQ9XZZ Repair Perineum Skin, External Approach (ICD-10-PCS; 2018-10-25)
DX: O76 Abnormality in fetal heart rate and rhythm complicating labor and delivery (principal); O70.0 First degree perineal laceration during delivery; O99.713 Diseases of the skin and subcutaneous tissue complicating pregnancy, third trimester; L02.211 Cutaneous abscess of abdominal wall; B95.8 Unspecified staphylococcus as the cause of diseases classified elsewhere; O69.81X0 Labor and delivery complicated by cord around neck, without compression, not applicable or unspecified; O9A.213 Injury, poisoning and certain other consequences of external causes complicating pregnancy, third trimester; L50.0 Allergic urticaria; T36.8X5A Adverse effect of other systemic antibiotics, initial encounter; O99.820 Streptococcus B carrier state complicating pregnancy; O99.613 Diseases of the digestive system complicating pregnancy, third trimester; K21.9 Gastro-esophageal reflux disease without esophagitis; Z3A.39 39 weeks gestation of pregnancy; Z37.0 Single live birth
CPT/HCPCS: 36415; 81000; 85025; 86850; 86900; 86901; 90715

== ENCOUNTER 2022-07-09 12:26 | Emergency (ER) | payer MEDICAID, OTHER ==
[~2022-07-09] VITALS: Ht 162.6 cm; Wt 102.0 kg
[~2022-07-09 12:26] MED LIST changes: +ACET-78 PO; +CLINDAMYCIN 1%; +IBUP-844 PO
--- NOTE | 2022-07-09 12:43 | ED Back Pain ---
General Chief Complaint: Back Problems Stated Complaint: LWR BACK PAIN History of Present Illness Date Seen by Provider: Jul 09, 2022 Time Seen by Provider: 12:41 Initial Comments 26-year-old female is here with complaints of lower back pain which is been going on for 2 weeks. Patient has a chronic history of back pain over the past few years, which patient states that she thinks it may be due to the epidural she received during childbirth. Denies any falls, injuries, trauma, past or present, denies bowel or bladder dysfunction, sensory loss, or neurological deficits. There is no radiation of pain. Allergies and Home Medications Allergies Coded Allergies: vancomycin (Verified Allergy, Mild, HIVES, 10/24/18) Patient Home Medication List Home Medication List Reviewed: Yes Acetaminophen (Acetaminophen) 500 Mg Tablet, 1,000 MG PO Q8H Prescribed by: FRANCO BERRIOS on 10/26/182036 Ibuprofen (Ibu) 600 Mg Tablet, 600 MG PO Q6H Prescribed by: FRANCO BERRIOS on 10/26/182036 Pnv No.122/Iron/Folic Acid ( Multi Tablet) 1 Each Tablet, 1 EACH PO, (Reported) Entered as Reported by: MAYDA HERBERT on 09/09/182039 [clindamycin 1% top] , (Reported) Entered as Reported by: MAYDA HERBERT on 10/23/182256 Review of Systems Constitutional: no symptoms reported EENTM: no symptoms reported Respiratory: no symptoms reported Cardiovascular: no symptoms reported Gastrointestinal: no symptoms reported Genitourinary: no symptoms reported : No Musculoskeletal: back pain Skin: no symptoms reported Psychiatric/Neurological: No Symptoms Reported Past Phphvkq-Wfklrr-Veivei Hx Immunizations Up To Date PED Vaccines UTD: No Seasonal Allergies Seasonal Allergies: No Past Medical History Surgeries: Yes Respiratory: No Cardiac: No Neurological: No Genitourinary: No Gastrointestinal: No Musculoskeletal: No Endocrine: No HEENT: No Cancer: Yes Psychosocial: No Integumentary: No Blood Disorders: No Family Medical History Diabetes mellitus 19 MOTHER Physical Exam Vital Signs Vital Signs - First Documented 07/09/22 12:39 Temp 36.3 Pulse 77 Resp 16 B/P (MAP) 116/61 (79) O2 Delivery Room Air Capillary Refill : Height, Weight, BMI Height: 5'4.00" Weight: 239lbs. 0.0oz. 108.472907lx; 41.0 BMI Method: General Appearance: No Apparent Distress, WD/WN HEENT: PERRL/EOMI Neck: Full Range of Motion, Normal Inspection, Non Tender, Supple Back: Normal Inspection, No Vertebral Tenderness, Other (Paraspinal tenderness but no apparent muscle spasms present, straight leg test bilaterally is negat saurav. No saddle anesthesia.) Extremity: Normal Inspection, Normal Range of Motion Neurologic/Psychiatric: Alert, Oriented x3, No Motor/Sensory Deficits, Normal Mood/Affect, sole assessor II-XII Norm as Tested Skin: Normal Color Progress/Results/Core Measures Results/Orders My Orders Orders - JUHI BRENNAN MD Thoracolumbar Spine Min 2 View (07/09/22 12:50) Ketorolac Injection (Toradol Injection) (07/09/22 13:00) Dexamethasone Injection (Decadron Inje (07/09/22 13:00) Urine Bedside (07/09/22 13:04) Medications Given in ED Current Medications Medications Dose Ordered Sig/Jeri Route Start Time Stop Time Status Last Admin Dose Admin Dexamethasone Sodium Phosphate 10 mg ONCE ONCE IM 07/09/22 13:00 07/09/22 13:01 DC 07/09/22 12:57 10 MG Ketorolac Tromethamine 30 mg ONCE ONCE IM 07/09/22 13:00 07/09/22 13:01 DC 07/09/22 12:58 30 MG Vital Signs/I&O 07/09/22 12:39 Temp 36.3 Pulse 77 Resp 16 B/P (MAP) 116/61 (79) O2 Delivery Room Air Progress Progress Note : Progress Note 1. LUMBAR BACK STRAIN: - XR THORACOLUMBAR SPINE: no acute findings -Toradol IM/dexamethasone 10 mg IM stat in ER -Prescriptions for Flexeril 3 times daily for [address]. [address] to drive while on this medication -Advised alternating and staggering Tylenol every 4 hours and ibuprofen every 6 hours as needed pain -Advise heat application/gentle massage/gentle stretching of back muscles -Follow-up with PCP within the next 7 days. Also discuss physical therapy possibility with PCP -The patient was seen in the ED, and treated appropriately to presentation at a specific point in time. Patient is informed that there is a possibility that disease and illness can evolve and change in acuity rapidly or slowly after patient is discharged from the ER. Precautionary advice given to the patient for immediate return to ER if symptoms worsen or do not resolve, and to seek emergency care sooner rather than later. Pt also advised on the importance of PCP follow up and compliance with management and follow up plan with PCP and/or specialist, as this is part of the management plan. Pt verbally expressed understanding. Diagnostic Imaging Diagonstic Imaging: Xray Plain Films/CT/US/NM/MRI: other Comments [facility], [place] NAME: ADELAIDA DICKINSON [facility] REC#: [id number] PT STATUS: REG ER : 1995 PHYSICIAN: JUHI BRENNAN MD ADMIT DATE: 07/09/22/ER FS Draft Date of Exam:07/09/22 THORACOLUMBAR SPINE MIN 2 VIEW THORACOLUMBAR SPINE MIN 2 VIEW INDICATION: Back pain. COMPARISON: None available. TECHNIQUE: AP and lateral views of the thoracolumbar spine. FINDINGS: No traumatic subluxation. No acute fracture. There are few Schmorl's nodes involving the L2 and L3 vertebral bodies. No ankylosis within the visualized thoracolumbar spine or SI joints. IMPRESSION: No acute osseous abnormality in the visualized thoracolumbar spine. Dictated on workstation # [id number] Dict: 07/09/22 1342 Trans: 07/09/22 1351 [id number] [id number] Interpreted by: CHRISTEN PERDOMO MD Electronically signed by: Departure Impression Primary Impression: Strain of lumbar paraspinal muscle Qualified Codes: S39.012A - Strain of muscle, fascia and tendon of lower back, initial encounter Disposition: HOME, SELF-CARE Condition: Stable Departure-Patient Inst. Referrals: CANDY GARIBAY APRN (PCP) Primary Care Physician [facility]/[place] (Family) Primary Care Physician Patient Instructions: Muscle Strain, Do I Need an X-ray (or Other Test) for Low Back Pain?, Exercise Band Exercises for the Back and Hips, Low Back Pain (DC) Add. Discharge Instructions: -Advised alternating and staggering Tylenol every 4 hours and ibuprofen every 6 hours as needed pain -Advise heat application/gentle massage/gentle stretching of back muscles, stretching exercises included -Follow-up with PCP within the next 7 days. Also discuss physical therapy po ssibility with PCP All discharge instructions reviewed with patient and/or family. Voiced understanding. Scripts Cyclobenzaprine HCl (Cyclobenzaprine HCl) 5 Mg Tablet 5 MG PO TID for 7 Days, #14 TAB Prov: JUHI BRENNAN MD 07/09/22 Work/School Note: Work Release Form Date Seen in the Emergency Department: Jul 09, 2022 Return to Work: Jul 10, 2022 Other Restrictions Listed Below: No heavy lifting JUHI BRENNAN MD Jul 09, 2022 12:43
[2022-07-09] MEDS ORDERED: KETOROLAC 30 MG/ML VIAL IM ONE (13:00)
--- NOTE | 2022-07-09 13:51 | Diagnostic Imaging Report ---
THORACOLUMBAR SPINE MIN 2 VIEW INDICATION: Back pain. COMPARISON: None available. TECHNIQUE: AP and lateral views of the thoracolumbar spine. FINDINGS: No traumatic subluxation. No acute fracture. There are few Schmorl's nodes involving the L2 and L3 vertebral bodies. No ankylosis within the visualized thoracolumbar spine or SI joints. IMPRESSION: No acute osseous abnormality in the visualized thoracolumbar spine. Dictated by: Dictated on workstation # [id number]
[2022-07-09 14:30] VITALS: BP 116/61
[2022-07-09] MEDS ORDERED: CYCL5TAB PO (14:37)
== END 2022-07-09 14:38 | disposition home or self-care (01) ==
LOC: EDUNIT# 12:26 → ER FS 12:28
DX: S39.012A Strain of muscle, fascia and tendon of lower back, initial encounter (principal); Z28.310 Unvaccinated for COVID-19; X58.XXXA Exposure to other specified factors, initial encounter
CPT/HCPCS: 72080; 84703